=== PATIENT | female | born 1980 | race Caucasian/White ===

== ENCOUNTER 2024-05-12 15:47 | Inpatient (IN) | payer OTHER, SELFPAY ==
[2024-05-12] VITALS (12 sets, daily range): BP systolic 95–114; BP diastolic 48–73; BMI 22.7; BMI 22.3
--- NOTE | 2024-05-12 10:22 | ED.GENMED ---
History of Present Illness
<Florinda Jacome MD, Resident - Last Filed: 05/12/24 15:02>
General
Chief Complaint: Fainting/Passed Out
Source: patient
Exam Limitations: none
Time Seen by Provider: 05/12/24 09:38
Nursing documentation reviewed up to this point in time: agreed with
History of Present Illness
History of Present Illness:
42-year-old female with past medical history of Takotsubo cardiomyopathy, CHF, ablation, AICD comes to the ER for evaluation of a syncopal episode. She had a episode at about 9 AM in the morning in the correctional facility, witnessed by facility
members, patient did not hit her head but has mild chest pain from her defibrillator going off. She did not have tongue biting or postictal phase or bowel or bladder incontinence during her syncope. She denies having diaphoresis, shortness of
breath, palpitations, lightheadedness or dizziness, swelling of the feet. She is on heart failure medication regimen and states that her last medication dosing was on . Did not receive her meds over the weekend.
Past History
<Florinda Jacome MD, Resident - Last Filed: 05/12/24 15:02>
Past History
ED Past Medical History: CHF, Other (takotsubo CM) and Other (pneumonia)
Social History
Tobacco: Former smoker (one ppd, just quick 10 days ago)
Alcohol: None
Drug: Narcotics
Personal: Single
Living: jail
Family History
Family History: Other
Review of Systems
<Florinda Jacome MD, Resident - Last Filed: 05/12/24 15:02>
Review of Systems
Allergies reviewed?: Yes
Other source history: family
Constitutional: Reports no symptoms
EENT: Reports no symptoms
Respiratory: Reports no symptoms
Cardiac: Reports chest pain and syncope
ABD/GI: Reports no symptoms
: Reports no symptoms
Musculoskeletal: Reports no symptoms
Skin: Reports no symptoms
Neurological: Reports no symptoms
Endocrine: Reports no symptoms
Hematologic/Lymphatic: Reports no symptoms
Psychiatric: Reports no symptoms
Phy Exam
<Florinda Jacome MD, Resident - Last Filed: 05/12/24 15:02>
General Physical Exam
General Presentation: well appearing and no apparent distress
General Skin: warm
General Habitus: normal
General Mental: alert
General Hydration: appears well hydrated
Eye Exam
Eye Exam: PERRL and EOMI
Cardiovascular Exam
Cardiovascular Exam: regular rate/rhythm, no edema, no gallop, no JVD and normal peripheral pulses
Systolic Murmur: 2/6
Pulmonary Exam
Pulmonary Exam: lungs clear, no respiratory distress, no rales, no crackles and no rhonchi
Gastrointestinal Exam
Gastrointestinal Exam: normal bowel sounds, non tender, soft, no pulsatile mass and non distended
Neurological Exam
Neurological Exam: alert, oriented x3, CN II-XII intact, no motor deficits and speech normal
Skin Exam
Skin Exam: normal color
Psychiatric Exam
Psychiatric Exam: normal mood/affect
Course
<Florinda Jacome MD, Resident - Last Filed: 05/12/24 15:02>
Orders/Labs/Results
Orders:
Orders
05/12/24 09:39
EKG [Electrocardiogram (*1)] Urgent
Reason for Study: Chest Pain
EKG- Treatment ONCE
05/12/24 10:15
CR Chest - 2 Views Urgent
Comment:
Reason For Exam: aicd d/c, need to verify pacer brand
05/12/24 10:20
Interrogate Pacemaker- Treatment ONCE
Pulse Ox/cont/shift [RESP] Stat
Quantity: 1
05/12/24 10:21
Electrocardiogram (*1) Stat
Reason for Study: Other
Other Reason for Exam: chest pain
Cardiac Monitoring- Treatment ONCE
05/12/24 10:24
Complete Blood Count/With Diff Urgent
Comprehensive Metabolic Panel Urgent
TSH Urgent
Troponin I Urgent
05/12/24 13:48
Consult Cardiology [CARDIOLOGY CONSULT] Urgent
Consulting Provider: Roderick Gonzáles
Was physician already notified: Yes
Reason for consult: Syncope, V fib on AICD interrogation
Abnormal Lab Results
05/12/24
10:24
MPV 10.9 H fL
(7.4-10.4)
Absolute Neuts (auto) 9.2 H 10^3/uL
(1.4-6.5)
Absolute Lymphs (auto) 0.9 L 10^3/uL
(1.2-3.4)
Neutrophils % 85.4 H %
(42.2-75.2)
Lymphocytes % 8.7 L %
(20.5-51.1)
Glucose 250 H mg/dl
(70-99)
Total Bilirubin 2.6 H mg/dl
(0.2-1.3)
TSH 0.10 L uIU/ml
(0.47-4.68)
05/12/24 10:24
05/12/24 10:24
Vital Signs
Initial and Last Documented VS:
Initial Vital Signs
Temp Pulse Resp BP Pulse Ox
98.2 F 74 18 108/66 99
05/12/24 09:39 05/12/24 09:39 05/12/24 09:39 05/12/24 09:39 05/12/24 09:39
Last Documented Vital Signs
Temp Pulse Resp BP Pulse Ox
98.2 F 63 18 101/69 100
05/12/24 09:39 05/12/24 13:45 05/12/24 13:45 05/12/24 13:00 05/12/24 13:15
<Jefferson Oconnor, DO - Last Filed: 05/12/24 14:04>
Orders/Labs/Results
Orders:
Orders
05/12/24 09:39
EKG [Electrocardiogram (*1)] Urgent
Reason for Study: Chest Pain
EKG- Treatment ONCE
05/12/24 10:15
CR Chest - 2 Views Urgent
Comment:
Reason For Exam: aicd d/c, need to verify pacer brand
05/12/24 10:20
Interrogate Pacemaker- Treatment ONCE
Pulse Ox/cont/shift [RESP] Stat
Quantity: 1
05/12/24 10:21
Electrocardiogram (*1) Stat
Reason for Study: Other
Other Reason for Exam: chest pain
Cardiac Monitoring- Treatment ONCE
05/12/24 10:24
Complete Blood Count/With Diff Urgent
Comprehensive Metabolic Panel Urgent
TSH Urgent
Troponin I Urgent
05/12/24 13:48
Consult Cardiology [CARDIOLOGY CONSULT] Urgent
Consulting Provider: Roderick Gonzáles
Was physician already notified: Yes
Reason for consult: Syncope, V fib on AICD interrogation
Abnormal Lab Results
05/12/24
10:24
MPV 10.9 H fL
(7.4-10.4)
Absolute Neuts (auto) 9.2 H 10^3/uL
(1.4-6.5)
Absolute Lymphs (auto) 0.9 L 10^3/uL
(1.2-3.4)
Neutrophils % 85.4 H %
(42.2-75.2)
Lymphocytes % 8.7 L %
(20.5-51.1)
Glucose 250 H mg/dl
(70-99)
Total Bilirubin 2.6 H mg/dl
(0.2-1.3)
TSH 0.10 L uIU/ml
(0.47-4.68)
05/12/24 10:24
05/12/24 10:24
Vital Signs
Initial and Last Documented VS:
Initial Vital Signs
Temp Pulse Resp BP Pulse Ox
98.2 F 74 18 108/66 99
05/12/24 09:39 05/12/24 09:39 05/12/24 09:39 05/12/24 09:39 05/12/24 09:39
Last Documented Vital Signs
Temp Pulse Resp BP Pulse Ox
98.2 F 63 18 101/69 100
05/12/24 09:39 05/12/24 13:45 05/12/24 13:45 05/12/24 13:00 05/12/24 13:15
<Florinda Jacome MD, Resident - Last Filed: 05/12/24 15:02>
MDM/Problems Addressed
Differential Diagnosis Includes:
Syncope secondary to V-fib
MDM/Problems Addressed:
AICD interrogation performed by [employer] traffic workforce representative.
Chronic conditions affecting care: Cardiomyopathy
Acute Exacerbation and/or Progression of Chronic Illness: Cardiomyopathy
<Florinda Jacome MD, Resident - Last Filed: 05/12/24 15:02>
*Radiology
Radiology exam reviewed: preliminary read by ED provider and radiology read reviewed
*Pulse Oximetry
Patient hypoxic: no
*EKG
Interpreted by ED Provider?: Yes
EKG Intrepretation Date: 05/12/24
Interpretation: normal
Comparison EKG: no comparison EKG present
Rate: normal
Rhythm: sinus
[place]: left axis deviation
QRS Pattern: left bundle branch block
Ischemia: non-specific ST changes
*Warp Knitter Helper Interpretation
Rate: normal
Rhythm: sinus
*Critical Care Note
Total Time (30-74mins, 75-104mins- exclusive of procedures): Not Applicable
Data Reviewed
Review of Other/Old Records Reveals: Labs
Source: patient and records
<Florinda Jacome MD, Resident - Last Filed: 05/12/24 15:02>
Update Note
Update Note:
AICD interrogation performed V-fib episodes recorded.
Cardiology consulted. Cardiology requested admission under hospital medicine.
ED Attending Note
<Florinda Jacome MD, Resident - Last Filed: 05/12/24 15:02>
-
Portions of this chart may have been created with voice recognition software.� Occasional wrong word or��sound alike� substitutions may have occurred due to the inherent limitations of voice recognition software.
<Jefferson Oconnor, DO - Last Filed: 05/12/24 14:04>
ED Attending Note
Patient seen and examined by attending physician: Yes
I performed a history and physical exam of patient and discussed management with resident, I reviewed resident's note and agree with documented findings and plan of care.: Yes
ED Attending Note:
I have reviewed and agree with history and treatment plan by Florinda Jacome MD. My exam reveals 43-year-old female no acute distress. Interrogation by [employer] rep reveals ventricular fibrillation episode. Will likely admit
patient to hospital for further evaluation versus transfer to [place].
Discharge Plan
Departure
Patient Disposition: Admit
Date of Disposition: 05/12/24
Time of Disposition: 15:00
Presentation/result/management discussed w/ accepting MD/DO: Hospitalist
Patient with high blood pressure during this ER visit?: Yes
Condition: Fair
Discharge Problem:
Ventricular fibrillation
Prescriptions:
No Action
furosemide 40 MG tablet
40 mg PO DAILY
carvedilol 6.25 MG tablet
6.25 mg PO BID
enalapril maleate 10 MG tablet
10 mg PO BID
hydralazine 25 MG tablet
25 mg PO TID
acetaminophen-codeine 1 TABLET tablet
2 tab PO TID PRN (Reason: pain)
spironolactone 12.5 MG tablet
12.5 mg PO DAILY
magnesium oxide 400 MG tablet
400 mg PO DAILY
isosorbide dinitrate 20 MG tablet
20 mg PO TID
digoxin 0.125 MG tablet
0.125 mg PO DAILY
Referrals:
[facility] [Family Provider] -
Interventions
Interventions:
*Risk Screen - Suicide Last Done: 05/12/24 09:39
*General Assessment Last Done: 05/12/24 09:39
*Neglect/Abuse Screening Last Done: 05/12/24 09:39
ED- Fall Risk Assessment Last Done: 05/12/24 09:40
*ED COVID-19 Vaccine History Last Done: 05/12/24 09:39
ED- Cardiac Assessment Last Done: 05/12/24 09:40
ED- Neurological Assessment Last Done: 05/12/24 09:40
Discharge Date and Time
Print Language: SETSWANA
[2024-05-12 10:37] LABS: % Basophils 0.2 % (0-2); % Eosinophils 0.3 % (0-6); % Immature Granulocytes 0.3 % (0-0.5); % Lymphocytes 8.7 % (20.5-51.1); % Monocytes 5.1 % (1.7-9.3); % Neutrophils 85.4 % (42.2-75.2); Absolute Lymphocytes 0.9 10^3/uL (1.2-3.4); Absolute Monocytes 0.6 10^3/uL (0.1-0.6); Absolute Neutrophils 9.2 10^3/uL (1.4-6.5); Hematocrit 40.6 % (37.0-47.0); Hemoglobin 14.1 g/dL (12.0-16.0); Mean Corp Hgb Conc. 34.7 g/dL (33.0-37.0); Mean Corpuscular Hgb 29.3 pg (27.0-31.0); Mean Corpuscular Volume 84.2 fL (81.0-99.0); Mean Platelet Volume 10.9 fL (7.4-10.4); Nucleated Red Blood Cells % 0 %; Platelet Count 226 10^3/uL (130-400); Red Blood Cell Count 4.82 10^6/uL (4.20-5.40); Red Cell Dist. Width 13.2 % (11.5-14.5); White Blood Cell Count 10.8 10^3/uL (4.8-10.8)
[2024-05-12 10:49] LABS: ALT (SGPT) 14 U/L (0-35); AST (SGOT) 19 U/L (14-36); Albumin 4.3 g/dl (3.5-5.0); Alkaline Phosphatase 79 U/L (38-126); Blood Urea Nitrogen 15 mg/dl (7-17); Calcium 9.6 mg/dl (8.4-10.2); Carbon Dioxide 27 mmol/L (22-30); Chloride 102 mmol/L (98-107); Glucose 250 mg/dl (70-99); Potassium 3.6 mmol/L (3.5-5.1); Sodium 138 mmol/L (135-145); Total Bilirubin 2.6 mg/dl (0.2-1.3); Total Protein 6.6 g/dl (6.3-8.2); eGFR > 60.00
[2024-05-12 11:02] LABS: Troponin I 0.017 ng/ml
--- NOTE | 2024-05-12 15:05 | CON.CAR ---
Addendum entered and electronically signed by Roderick Gonzáles DO 05/12/24 16:49:
I saw and examined the patient.
The Manager [employer]'s note was reviewed and I agree with the note.
Comment:
Plan:
Hx Tokotsubo CM, HF, long QT subcutaneous ICD, VT who presents with syncope and VFib with defib
Trend troponins.
Cont tele monitor.
Check echo
Obtain records from [facility]
Replete lytes and keep K>4 and Mg>2.
Pt has been off meds for several days due to her incarceration.
Currently on Flecainide, will need to review records.
Cont meds for CM
appears euvolemic
Encouraged to quit smoking and the significant cardiac risks with smoking have been discussed.
Will need to consider ischemic eval pending records.
Original Note:
Consultation
Consultation Request
Date/Time Consultation Requested: 05/09/24, 1337
Date/Time Consultation Performed: 05/09/24, 1430
Requesting Provider: Florinda Jacome
Performing Provider: OSKAR Marino for Dr Gonzáles
Reason for Consultation: ICD shock
Medical History
-
Chief Complaint: syncope
History of Present Illness:
43 year old female with PMH Takotsubo CM, heart failure, long QT, subcutaneous ICD, VT who presents to [facility] following a syncopal episode this morning with ICD shock. She was sitting down when she suddenly felt lightheaded that progressed to syncope
and subsequent shock. She is followed at [place] by Dr. Escamilla and is on multiple heart failure meds including Entresto, spironolactone, Lasix. She tells me she was previously on carvedilol and digoxin but both were stopped, unclear why. She has
been off all medications since 05/08/2024 at which time she was placed in group home and has not had her medications since going to group home.
She had been feeling well with no symptoms of chest pain, shortness of breath, palpitations, lightheadedness, edema. She has had no recent illnesses. Denies vomiting, diarrhea.
She tells me she has had over 50 shocks over the years, most recent shock besides today was a year ago. She tells me she had an echocardiogram about 6 months ago that showed improvement in her ejection fraction to 30%. She tells me it was as low
as 5% at 1 time. She is not sure if she has had a cardiac catheterization in the past.
Evaluation in ER: EKG: Normal sinus rhythm, interventricular conduction delay, cannot rule out anterior septal infarct, nonspecific ST-T wave abnormality, QTc 475 ms
K3.6, BUN/creatinine 15/0.6, glucose 250, troponin 0.017, TSH 0.10
Chest x-ray: no pulmonary edema
Past medical history:
Takotsubo cardiomyopathy, diagnosed 2011 (2 months after her son was born she suffered seizure and cardiac arrest and was diagnosed at this time)
Heart failure reduced ejection fraction, diagnosed 2012
Long QT syndrome
Subcutaneous ICD placed approximately 10 years ago with generator change 2021, Q Interactive device
Active smoker
Past Medical History
Past Medical History: Other (as above)
Past Surgical History: Other (subcutaneous ICD)
Social History
Tobacco: Smoker (07/17 ppd)
Alcohol: None
Drug: Marijuana
Family History
Family History: Reviewed & Not Pertinent (No FH of SCD)
Allergies / Home Medications
Allergy/AdvReac Type Severity Reaction Status Date / Time
Cephalosporins Allergy Severe Swelling Verified 05/12/24 09:43
tramadol Allergy Intermediate seizure Verified 05/12/24 09:43
duloxetine HCl Allergy seizure Verified 05/12/24 09:43
[From Cymbalta]
�Medication �Instructions �Recorded �Confirmed �Type
acetaminophen 300 mg-codeine 30 mg 2 tab PO TID PRN pain 12/13/13 12/13/13 History
tablet
carvedilol 6.25 mg tablet 6.25 mg PO BID 12/13/13 12/13/13 History
digoxin 125 mcg (0.125 mg) tablet 0.125 mg PO DAILY 12/13/13 12/13/13 History
enalapril maleate 10 mg tablet 10 mg PO BID 12/13/13 12/13/13 History
furosemide 40 mg tablet 40 mg PO DAILY 12/13/13 12/13/13 History
hydralazine 25 mg tablet 25 mg PO TID 12/13/13 12/13/13 History
isosorbide dinitrate 20 mg tablet 20 mg PO TID 12/13/13 12/13/13 History
magnesium oxide 400 mg (241.3 mg 400 mg PO DAILY 12/13/13 12/13/13 History
magnesium) tablet
spironolactone 25 mg tablet 12.5 mg PO DAILY 12/13/13 12/13/13 History
Review of Systems
-
History Source: Patient
All other systems: Negative unless noted
Physical Exam
Vital Signs
Temp Pulse Resp BP Pulse Ox
98.2 F 63 18 101/69 100
05/12/24 09:39 05/12/24 13:45 05/12/24 13:45 05/12/24 13:00 05/12/24 13:15
GEN: No distress, awake, Ox3
HEENT: supple, anicteric, mmm
LUNGS: CTA, no wheezes/rales
CV: Reg, S1/S2, no murmur
ABD: soft, BS+, NT/ND
EXT: No edema
NEURO: Gross non-focal
SKIN: No rash, L axillary subcutaneous ICD site well healed
Lab Results
05/12/24 10:24
05/12/24 10:24
Troponin I 0.017 ng/ml 05/12/24 10:24
Impression / Plan
-
PCP:
[facility] former: Johny Ontiveros MD ([place])
Impression:
Vfib
syncope
h/o Takotsubo cardiomyopathy
h/o long QT
SubQ ICD (Q Interactive, generator change 2021)
active smoker
Previous cardiovascular diagnostic studies:
-in process of obtaining from [place]
Plan:
1. Vfib--->syncope-->ICD shock
-check troponins
-electrolytes, keep K>4, Mag >2
-check echo
-pt has been off her heart failure and antiarrhythmic medications for 4 days-resume
-monitor QTc in setting of h/o long QT syndrome and avoid QT prolonging meds
-consider ischemic workup
-pt reports having >50 shocks in her lifetime, need to obtain records from primary heel former to see history and previous workup
-on Flecainide -not ideal antiarrhythmic in setting of cardiomyopathy - get records from primary cards
-TSH 0.10 - abnormal - await input of primary service
2. h/o cardiomyopathy
-pt reports h/o Takotsubo CM that was diagnosed in 2011, two months after her son was born. EF as low as 5%, but reports it was 30% on most recent echo ~6 months ago
-Obtain meds from her pharmacy as she was not sure of her current meds. Patient on Entresto 97/103 mg BID, spironolactone 12.5 mg daily, Jardiance 10 mg daily, Lasix 20 mg daily, potassium chloride 10 mEq daily, nadolol 20 mg twice daily,
flecainide 150 mg twice daily
-Previously on carvedilol but switched to nadolol, unclear why -due to arrhythmias? Obtaining previous records
-Does not appear volume overloaded on exam
-Check echo today
-Advised smoking cessation
Data Reviewed
-
EKG: Tracing Personally Visualized and interpreted
Labs: Labs Reviewed by me
Total Time Spent with Patient (in minutes): 60
--- NOTE | 2024-05-12 15:07 | HPS.HSE ---
Family Physician
-
Family Physician: [facility]
Chief Complaint
-
witnessed syncope
History of Present Illness
42F HX Takotsubo cardiomyopathy, CHF, ablation, AICD seen at ER for evaluation of a syncopal episode.
- [facility]
- witnessed by facility members, patient did not hit her head but has mild chest pain from her defibrillator going off.
- No tongue biting or postictal phase or bowel or bladder incontinence during her syncope.
- denies having diaphoresis, shortness of breath, palpitations, lightheadedness or dizziness, swelling of the feet.
- on heart failure medication regimen and states that her last medication dosing was on .
- Did not receive her meds over the weekend.
Medical History
Past Medical History
Past Medical History: Reports CHF ((takotsubo CM)) and Other (AICD implant )
Additional Past Medical History:
PNA
Past Surgical History: Reports Cardiac (AICD implant, ablation )
Social History
Tobacco: Smoker (quit 10 days ago , smoke 1 PPD )
Drug: Narcotics
Living: Care Home
Family History
Family History: Not pertinent
Allergies / Home Medications
Allergies reflects when Allergies were last updated in [employer].
Home Medications with original date entered in [facility]
Allergy/Medication List:
Allergies
Allergy/AdvReac Type Severity Reaction Status Date / Time
Cephalosporins Allergy Severe Swelling Verified 05/12/24 09:43
tramadol Allergy Intermediate seizure Verified 05/12/24 09:43
duloxetine HCl Allergy seizure Verified 05/12/24 09:43
[From Cymbalta]
Home Medications
acetaminophen 300 mg-codeine 30 mg tablet 2 tab PO TID PRN pain 12/13/13
carvedilol 6.25 mg tablet 6.25 mg PO BID 12/13/13
digoxin 125 mcg (0.125 mg) tablet 0.125 mg PO DAILY 12/13/13
enalapril maleate 10 mg tablet 10 mg PO BID 12/13/13
furosemide 40 mg tablet 40 mg PO DAILY 12/13/13
hydralazine 25 mg tablet 25 mg PO TID 12/13/13
isosorbide dinitrate 20 mg tablet 20 mg PO TID 12/13/13
magnesium oxide 400 mg (241.3 mg magnesium) tablet 400 mg PO DAILY 12/13/13
spironolactone 25 mg tablet 12.5 mg PO DAILY 12/13/13
Review of Systems
-
Constitutional: Reports No Symptoms
EENT: Reports No Symptoms
Respiratory: Reports No Symptoms
Cardiac: Reports Syncope (witnessed )
Abdomen/GI: Reports No Symptoms
: Reports No Symptoms
Musculoskeletal: Reports No Symptoms
Skin: Reports No Symptoms
Neurological: Reports No Symptoms
Endocrine: Reports No Symptoms
Hematologic/Lymphatic: Reports No Symptoms
Psych: Reports No Symptoms
Physical Exam
Vital Signs
Vital Signs
Temp Pulse Resp BP Pulse Ox
98.2 F 63 18 101/69 100
05/12/24 09:39 05/12/24 13:45 05/12/24 13:45 05/12/24 13:00 05/12/24 13:15
Physical Exam
General: Well Developed, Well Nourished and No Apparent Distress
HEENT: NormoCephalic, Moist mucous membranes and Atraumatic
Respiratory: Clear
Cardiac: S1/S2 and Regular Rhythm; No Murmur or Rub
GI: Soft, Non Tender, Non Distended and Normal Bowel Sounds; No Organomegaly
Rectal: Deferred by Provider
Musculoskeletal: No Clubbing, No Cyanosis and No Edema
Skin: No Rash
Neuro: Nonfocal/grossly intact
Laboratory Results
-
05/12/24 10:24
05/12/24 10:24
Laboratory Results
Total Bilirubin 2.6 mg/dl (0.2-1.3) H 05/12/24 10:24
AST 19 U/L (14-36) 05/12/24 10:24
ALT 14 U/L (0-35) 05/12/24 10:24
Alkaline Phosphatase 79 U/L (38-126) 05/12/24 10:24
Troponin I 0.017 ng/ml 05/12/24 10:24
Data Reviewed
-
Medical Tests (Nuc Med, Echo, EKG etc): Report Reviewed by me
Lab Data: Labs Reviewed by me
Impression/Plan
-
Vital Signs
Temp Pulse Resp BP Pulse Ox
98.2 F 63 18 101/69 100
05/12/24 09:39 05/12/24 13:45 05/12/24 13:45 05/12/24 13:00 05/12/24 13:15
Abnormal Lab Results
05/12/24
10:24
MPV 10.9 H
Absolute Neuts (auto) 9.2 H
Absolute Lymphs (auto) 0.9 L
Neutrophils % 85.4 H
Lymphocytes % 8.7 L
Glucose 250 H
Total Bilirubin 2.6 H
TSH 0.10 L
Data
Unremarkable CBC
Unremarkable BMP
BG 250
TB 2.6
NEG TPNI
TSH 0.10
CXR :
1. Left-sided subcutaneous AICD.
2. Normal heart size without evidence for acute pulmonary edema.
3. No radiographic evidence for acute cardiopulmonary disease.
EKG
NORMAL SINUS RHYTHM
NON-SPECIFIC INTRA-VENTRICULAR CONDUCTION BLOCK
CANNOT RULE OUT SEPTAL INFARCT (CITED ON OR BEFORE 13-DEC-2013)
CANNOT RULE OUT INFERIOR INFARCT , AGE UNDETERMINED
T WAVE ABNORMALITY, CONSIDER ANTEROLATERAL ISCHEMIA
ABNORMAL ECG
WHEN COMPARED WITH ECG OF 13-DEC-2013 14:31,
SIGNIFICANT CHANGES HAVE OCCURRED
NO PRIOR hospitalist admission:
ASSESSMENT & PLAN
Pending Rx reconciliation
Witnessed Syncope due to VF
Interrogation by [employer] rep reveals ventricular fibrillation episode.
HX ablation
- NEG TPNI
- ECHO for AM
- c/w [employer] MANAGER Flecainide, Nadolol
- DCA card consulted
HX Takotsubo cardiomyopathy, CHF
- No prior ECHO
- Jardiance, spironolactone , Entresto
Low TSH - sich euthyroid vs subclinical hyperthyroid
- check FT3 and FT4
DVT Px: LMWH
Full code
IP TLM
[2024-05-12 15:32] LABS: Magnesium 1.9 mg/dl (1.6-2.3)
[2024-05-12 17:30] LABS: Digoxin < 0.4 ng/ml (0.8-2.0)
[2024-05-12 18:11] LABS: Free T3 2.26 pg/ml (2.77-5.27); Free T4 1.05 ng/dl (0.78-2.19)
[2024-05-12 19:25] LABS: Magnesium 1.8 mg/dl (1.6-2.3); Phosphorus 2.8 mg/dl (2.5-4.5)
[2024-05-12] MEDS: CORGARD 20 MG PO (20:30)
[2024-05-12] MEDS: ENTRESTO 97 MG/103 MG 1 TAB PO (20:30)
[2024-05-12] MEDS: LOVENOX 40 MG SC (20:30)
--- NOTE | 2024-05-12 23:52 | PTCARENOTE ---
Received pt. as admit from ED at 2119. Pt placed on IVU tele monitor reading NSR/sinus arnie with BBB and prolonged QT with HR 50s-60s. Pt ambulated from stretcher to bed independently without difficulty. Attempted to sign off on handoff monitored
pt task on worklist, however PCT Arabella Lopez who transported the tele overflow pt to the unit unable to co-sign. Will let management know in AM. Vital signs obtained and pt oriented to room. Call allen within reach.
[2024-05-13 03:32] VITALS: BMI 22.3
[2024-05-13 04:34] VITALS: BP 95/59
[2024-05-13 04:54] LABS: Hematocrit 38.7 % (37.0-47.0); Hemoglobin 13.6 g/dL (12.0-16.0); Mean Corp Hgb Conc. 35.1 g/dL (33.0-37.0); Mean Corpuscular Hgb 29.6 pg (27.0-31.0); Mean Corpuscular Volume 84.1 fL (81.0-99.0); Platelet Count 220 10^3/uL (130-400); Red Cell Dist. Width 13.3 % (11.5-14.5); White Blood Cell Count 7.9 10^3/uL (4.8-10.8)
[2024-05-13 05:31] LABS: ALT (SGPT) 12 U/L (0-35); AST (SGOT) 18 U/L (14-36); Albumin 3.9 g/dl (3.5-5.0); Alkaline Phosphatase 67 U/L (38-126); Blood Urea Nitrogen 11 mg/dl (7-17); Calcium 9.3 mg/dl (8.4-10.2); Carbon Dioxide 28 mmol/L (22-30); Chloride 104 mmol/L (98-107); Estimated Creatinine Clearance 109 ml/min; Glucose 110 mg/dl (70-99); Magnesium 1.8 mg/dl (1.6-2.3); Phosphorus 3.5 mg/dl (2.5-4.5); Potassium 3.9 mmol/L (3.5-5.1); Sodium 141 mmol/L (135-145); Total Bilirubin 2.2 mg/dl (0.2-1.3); Total Protein 6.3 g/dl (6.3-8.2); eGFR > 60.00
[2024-05-13 06:36] VITALS: BP 111/61
--- NOTE | 2024-05-13 07:30 | W.PN.HOSP.TC ---
Today's Communication/Plan
-
see plan
Assessment / Plan
Assessment / Plan
Ms. Yesenia Griffin is a 43 yo woman with hx Takotsubo cardiomyopathy, heart failure (reported EF 30% 6 months ago), long QT, VT s/p AICD who presents to the ER post syncopal episode in setting of an AICD shock. She was placed in retirement on 4 days prior
to admission and reports not having her cardiac medications.
CXR :
1. Left-sided subcutaneous AICD.
2. Normal heart size without evidence for acute pulmonary edema.
3. No radiographic evidence for acute cardiopulmonary disease.
TTE 05/13
CONCLUSIONS
Left ventricle is mildly dilated. Moderately reduced left ventricular systolic
function. Global hypokinesis. LV ejection fraction is 40%.
Mild to moderate mitral regurgitation.
No prior study available for comparison.
Indications:
VF s/p ICD shock, h/o cardiomyopathy
ASSESSMENT & PLAN
Witnessed Syncope due to VF
Interrogation by [employer] rep reveals ventricular fibrillation episode.
HX ablation
- NEG TPNI
- s/p TTE showing improved EF 40%; global hypokinesis; mild to moderate MR
- RHEUMATOLOGY NURSE Nadolol resumed
- RHEUMATOLOGY NURSE Flecainide held
- keep K > 4; Mag > 2 - repletion ordered
- appreciate cardiology - follow up further recs
HX Takotsubo cardiomyopathy, CHF
- per patient, EF had improved to 30% 6 months ago (was < 10% previously); 40% on TTE 05/12; patient appears euvolemic on exam and is not on RHEUMATOLOGY NURSE lasix
- RHEUMATOLOGY NURSE Jardiance, spironolactone , Entresto
Low TSH and low free T3 - in setting of euthyroid sick syndrome
DVT Px: LMWH
Full code
IP TLM
Anticipated Discharge: 24 - 48 hours
Subjective/Interval History
-
Date of Service: May 13, 2024
no more events overnight
no chest pain
no swelling
no shortness of breath
Objective Data
-
Labs:
Laboratory Results
05/13/24
04:33
WBC 7.9
Hgb 13.6
Hct 38.7
Plt Count 220
Sodium 141
Potassium 3.9
Chloride 104
Carbon Dioxide 28
BUN 11
Creatinine 0.6
Glucose 110 H
Calcium 9.3
Total Bilirubin 2.2 H
AST 18
ALT 12
Alkaline Phosphatase 67
Vital Signs:
Vital Signs
Temp Pulse Resp BP Pulse Ox
98.6 F 56 16 111/61 98
05/13/24 06:36 05/13/24 07:00 05/13/24 06:36 05/13/24 06:36 05/13/24 06:36
I&O
05/12/24 05/13/24 05/14/24
06:59 06:59 06:59
Intake Total 480 / 480
Balance 480 / 480
Review of Systems
-
History Source: Patient
All other systems: Reviewed and negative
Physical Exam
-
General: No Apparent Distress
HEENT: PERRLA
Respiratory: Clear to Auscultation; Negative Wheezes
Cardiac: Regular Rhythm and S1/S2
GI: Soft and Nontender
Musculoskeletal: No Edema
Skin: Warm and Dry; Negative Rash
Neuro: AO x 3
Psych: Calm
Data Reviewed
-
Diagnostic Radiology: Report Reviewed by me
Labs: Labs Reviewed by me
--- NOTE | 2024-05-13 07:41 | PTCARENOTE ---
Received patient this morning resting in bed. Telemetry alarmed with HR of 38, patient was asleep, guards in the room at the bedside.
--- NOTE | 2024-05-13 08:25 | W.PN.CARDCBS ---
Addendum entered and electronically signed by Jl Griffin MD 05/13/24 09:09:
43-year-old woman with a history of Takotsubo cardiomyopathy, HFrEF, [employer] subcutaneous ICD for long QT syndrome who developed VF arrest with appropriate ICD discharge,, smoker followed at [place], off medications after recent
incarceration, on flecainide and nadolol as an outpatient. Currently, she feels well.
PMH as above
Current meds: Subcu Lovenox, spironolactone 12.5 mg a day, nadolol 20 mg twice daily, potassium 10 mill equivalents daily, subcu vitreal valsartan 97 103 twice daily, magnesium, flecainide currently on hold
Allergies, outpatient medications: Reviewed
ROS: Negative except as above
111/61, pulse 56, respirate 16, afebrile, sats 98%, no acute distress, head neck exam unremarkable, lungs are clear, soft systolic murmur at apex, JVD okay, extremities without clubbing cyanosis or edema, neuro nonfocal, abdomen benign
Echo 05/12: EF 40%, dilated LV with global hypokinesis, mild to moderate mitral regurgitation
ECG yesterday: Sinus rhythm, intraventricular conduction delay with repolarization abnormality, cannot exclude anterior CO, cannot exclude inferior CO, probable LVH, QTc is 475 ms
Hemoglobin 13.6, white count 7.9, electrolytes normal, bilirubin is 2.2, free T4 is normal, TSH is 0.1, digoxin level undetectable,, free T3 is slightly low, initial troponin 0.017, potassium is 3.9, magnesium is 1.8
Plan:
Despite her VF arrest with appropriate ICD discharge, she looks stable at this point.
Troponin was minimally detectable. EKG with intraventricular conduction delay, Q waves, ST segment changes, will repeat EKG but likely at baseline given her underlying cardiac pathology. QT interval was okay.
Echo EF is 40%. She says this is very good for her. She had mild to moderate MR. She is on GDMT, with nadolol as an outlier likely related to QT.
.
Will repeat troponin, repeat EKG. Will discuss with her nurse assessor Dr. Hughes. Likely reinstitute flecainide and if stable and no objection from Dr. Hughes, okay for discharge.
Original Note:
Today's Communication / Plan
-
awaiting records
holding flecainide
repeat trop
replete K/mag
Impression / Plan
-
PCP:
Primary pharmacy clerk: Johny Ontiveros MD ([place])
Primary EP: Dr. Jl Hughes, [place]
Impression:
Vfib s/p ICD shocks
syncope
h/o Takotsubo cardiomyopathy
h/o long QT
SubQ ICD (New Screens, generator change 2021)
active smoker
Previous cardiovascular diagnostic studies:
-in process of obtaining from [place]
Plan:
-patient presented with syncope and ICD shock secondary to VF. pt reports h/o Takotsubo CM that was diagnosed in 2011, two months after her son was born.
-trop on arrival 0.017. check repeat this AM
-in SR with occasional PVCs overnight. no VT/VF noted.
-replete K/mag
-echo with EF 40%, results reviewed with patient 05/13. she reports ~6 months ago, EF was 30% and had been as low as 5% in past
-she had been off her CHF and AAD meds for 4 days prior to this admission. OP nadolol, entresto, aldactone resumed
-avoid QT prolonging meds in setting of long QT history
-consider ischemic workup, however may not be necessary as has reason to have had VF (off OP meds)
-pt reports having >50 shocks in her lifetime, requested and awaiting records from primary pharmacy clerk for review
-on Flecainide -not ideal antiarrhythmic in setting of cardiomyopathy - get records from primary cards. holding for now
-TSH 0.10, treatment per primary service
-Does not appear volume overloaded on exam
-smoking cessation
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
Subjective
Date of Service: May 13, 2024
no issues overnight
Objective
Labs:
05/13/24 04:33
05/13/24 04:33
Labs
Hgb 13.6 g/dL (12.0-16.0) 05/13/24 04:33
Hct 38.7 % (37.0-47.0) 05/13/24 04:33
Plt Count 220 10^3/uL (130-400) 05/13/24 04:33
Sodium 141 mmol/L (135-145) 05/13/24 04:33
Potassium 3.9 mmol/L (3.5-5.1) 05/13/24 04:33
BUN 11 mg/dl (7-17) 05/13/24 04:33
Creatinine 0.6 mg/dL (0.6-1.0) 05/13/24 04:33
Glucose 110 mg/dl (70-99) H 05/13/24 04:33
Digoxin Cancelled 05/12/24 15:11
Troponins
05/12/24
10:24
Troponin I 0.017
Vital Signs and I&O:
Vital Signs
Temp Pulse Resp BP Pulse Ox
98.6 F 56 16 111/61 98
05/13/24 06:36 05/13/24 07:00 05/13/24 06:36 05/13/24 06:36 05/13/24 06:36
Vital Signs
Temp Pulse Resp BP Pulse Ox
98.6 F 56 16 111/61 98
05/13/24 06:36 05/13/24 07:00 05/13/24 06:36 05/13/24 06:36 05/13/24 06:36
Intake & Output
05/11/24 05/12/24 05/13/24 05/14/24
07:59 07:59 07:59 07:59
Intake Total 480 / 480
Balance 480 / 480
Physical Exam
Physical Exam
GEN: No distress, awake, alert, oriented x3
HEENT: supple, anicteric, mmm, eomi
LUNGS: CTA B/L, no wheezes/rales
CV: Reg, S1/S2, no murmur
ABD: soft, BS+, NT/ND
EXT: No cyanosis, clubbing, edema
NEURO: Gross non-focal
SKIN: Warm, pink, dry. No rash
[2024-05-13] MEDS: ALDACTONE 12.5 MG PO (08:38)
[2024-05-13] MEDS: CORGARD 20 MG PO (08:39)
[2024-05-13] MEDS: MAGNESIUM OXIDE 500 MG PO (08:40)
[2024-05-13] MEDS: KCL 10 MEQ PO ×2 (08:40)
[2024-05-13] MEDS: ENTRESTO 97 MG/103 MG 1 TAB PO (08:40)
[2024-05-13] MEDS: MAG-TAB SR 84 MG PO (08:41)
[2024-05-13] MEDS: FLUSH (NSS) 1 FLUSH IV (08:41)
[2024-05-13 09:43] LABS: Troponin I 0.018 ng/ml
[2024-05-13] MEDS: TAMBOCOR 150 MG PO (09:56)
--- NOTE | 2024-05-13 10:32 | W.DS.TRANS ---
DC Summary - Marketing Forecaster
-
Discharge Instructions:
Sleep Apnea Risk Low
Discharge Diagnosis/Procedures ventricular fibrillation and syncope status post
AICD firing
Diet Regular
Activity As tolerated
Driving Restrictions As prior to admission
Bathing Restrictions None
Blood Work BMP/mag in 1 week with results to waist fitter
Instructions:
Stand-Alone Forms:
Changes to Home Medications: Yes
Discharge Medications:
DC Medications w/original date entered in zerved
empagliflozin 10 mg tablet (Jardiance) 10 mg PO DAILY 05/12/24
flecainide 150 mg tablet 150 mg PO Q12H 05/12/24
nadolol 20 mg tablet 20 mg PO BID 05/12/24
potassium chloride 10 mEq tablet,extended release 10 meq PO DAILY 05/12/24
sacubitril 97 mg-valsartan 103 mg tablet (Entresto) 1 tab PO BID 05/12/24
spironolactone 25 mg tablet 12.5 mg PO DAILY 05/12/24
magnesium L-lactate 84 mg tablet,extended release 84 mg PO DAILY #30 tabs 05/13/24
Home Medication Changes
addition of magnesium
Pending Results: No
--- NOTE | 2024-05-13 10:42 | CM ---
Reviewed chart. Mrs Griffin is currently at resident of [facility]. The plan is to return to [facility] when medically stable.
[2024-05-13 11:01] VITALS: BP 96/57
[2024-05-13] MEDS: AFLURIA (36 mos+) 2024-2025 FORMULA 0.5 ML IM (11:34)
--- NOTE | 2024-05-13 11:46 | PTCARENOTE ---
Patient seen by cardiology, given flecainide as ordered after EKG done and patient is ok for discharge back to correctional facility. Patient permitted to shower, guards awaiting transport back to facility.
--- NOTE | 2024-05-13 12:35 | PTCARENOTE ---
Patient discharged back to [facility], discharge papers sent with the guards.
--- NOTE | 2024-05-13 14:04 | W.DCSUMMARY ---
Discharge Summary
Discharge Data
Date of Admission: 05/12/24
Date of Discharge: 05/13/24
-
Pending Results: No
Hospital Course
Discharging Physician : Dr. Dana Castellano
Disposition : Care Home - [facility]
Principal Discharge diagnosis : ventricular fibrillation and syncope status post AICD firing
Hospital Course :
Ms. Yesenia Griffin is a 43 yo woman with hx Takotsubo cardiomyopathy, heart failure (reported EF 30% 6 months ago), long QT, VT s/p AICD who presents to the ER post syncopal episode in setting of an AICD shock. She was placed in skilled nursing 4 days prior to
admission and reports not taking her cardiac medications since then.
Triage vitals stable. Troponin negative. She was admitted to medicine with Cardiology consulting and resumed on her home regimen. TTE repeated showing EF 40%. No events overnight. Per cardiology, Ok for discharge on these medications. Dr. Griffin
touched base with patient's senior construction manager, Dr. Hughes.
Time spent on discharge was 31 minutes.
Important imaging findings :
CXR :
1. Left-sided subcutaneous AICD.
2. Normal heart size without evidence for acute pulmonary edema.
3. No radiographic evidence for acute cardiopulmonary disease.
TTE 05/13
CONCLUSIONS
Left ventricle is mildly dilated. Moderately reduced left ventricular systolic
function. Global hypokinesis. LV ejection fraction is 40%.
Mild to moderate mitral regurgitation.
No prior study available for comparison.
Procedure findings :
Discharge Plan
-
Patient Disposition: Care Home
Discharge Diagnosis/Procedures: ventricular fibrillation and syncope status post AICD firing
Diet: Regular
Activity: As tolerated
Driving Restrictions: As prior to admission
Bathing Restrictions: None
Blood Work: BMP/mag in 1 week with results to movement education specialist
Referrals:
[facility],Facility [Family Provider] - Immediately
Jl Hughes MD [Non-Admitting Privileges] - in one month
Brian Ontiveros MD [Non-Admitting Privileges] - in one to two weeks
Additional Discharge Medication Instructions: It is important that you continue the below medication regimen
Prescriptions:
New
magnesium L-lactate 84 mg Tablet Extended Release
84 mg PO DAILY Qty: 30 0RF
Continued
flecainide 150 mg Tablet
150 mg PO Q12H
potassium chloride 10 mEq Tablet Extended Release
10 meq PO DAILY
spironolactone 25 mg Tablet
12.5 mg PO DAILY
nadolol 20 mg Tablet
20 mg PO BID
Jardiance 10 mg Tablet
10 mg PO DAILY
Entresto 97-103 mg Tablet
1 tab PO BID
Discharge Orders:
Discharge Patient (As Directed); Ordered 05/13/24
Ordered By: Dana Castellano
Care Plan Goals
Care Plan Goals:
Problem: Readiness for enhanced knowledge related to diagnosis and treatment plan
Goal: Understand your diagnosis and treatment plan needs, including medications if applicable.
Instructions: Know your diagnosis, underlying causes and treatment plan options, including medications if applicable. Consult with your health care team to learn about your diagnosis and treatment plan, including medications if applicable.
Discharge Date and Time
Discharge Date/Time: 05/13/24 12:37
Print Language: FRENCH
== END 2024-05-13 12:37 | DRG 309 ==
LOC: IVU 15:47
PROVIDERS: Physician Assistant; Student in an Organized Health Care Education/Training Program; ADMITTING PHYSICIAN Internal Medicine; ATTENDING PHYSICIAN Student in an Organized Health Care Education/Training Program; CONSULT PHYSICIAN Nuclear Medicine Nuclear Cardiology; EMERGENCY PHYSICIAN Emergency Medicine
PROC: 3E02340 Introduction of Influenza Vaccine into Muscle, Percutaneous Approach (ICD-10-PCS; 2024-05-13)
DX: I49.01 Ventricular fibrillation (principal); I50.22 Chronic systolic (congestive) heart failure; I51.81 Takotsubo syndrome; R55 Syncope and collapse; I44.7 Left bundle-branch block, unspecified; I45.81 Long QT syndrome; F17.210 Nicotine dependence, cigarettes, uncomplicated; Z23 Encounter for immunization; Z95.810 Presence of automatic (implantable) cardiac defibrillator; Z88.5 Allergy status to narcotic agent; Z88.1 Allergy status to other antibiotic agents; Z86.74 Personal history of sudden cardiac arrest; Z79.899 Other long term (current) drug therapy
CPT/HCPCS: 71046; 80053; 80162; 83735; 84100; 84439; 84443; 84481; 84484; 85025; 85027; 87070; 90686; 93005; 93289; 93306; 99285; 99406; G0008